=== PATIENT | female | born 1995 | race Caucasian/White ===

== ENCOUNTER 2025-02-05 22:06 | Observation (INO) | payer OTHER, SELFPAY ==
[2025-02-05 22:18] VITALS: BP 118/81; BMI 30.7
== END 2025-02-06 00:22 | disposition home or self-care (01) ==
LOC: LDRP 22:06
PROVIDERS: ADMITTING PHYSICIAN Obstetrics & Gynecology
DX: O9A.212 Injury, poisoning and certain other consequences of external causes complicating pregnancy, second trimester (principal); Z3A.26 26 weeks gestation of pregnancy; W01.0XXA Fall on same level from slipping, tripping and stumbling without subsequent striking against object, initial encounter; S00.511A Abrasion of lip, initial encounter; S80.212A Abrasion, left knee, initial encounter; S50.312A Abrasion of left elbow, initial encounter
CPT/HCPCS: G0378